=== PATIENT | male | born 1975 | race Caucasian/White ===

== ENCOUNTER 2018-03-01 11:12 | Emergency (ER) | payer BC ==
--- NOTE | 2018-03-01 11:56 | Emergency Department Record ---
History of Present Illness - General Chief Complaint: Fever Stated Complaint: FEVER Time Seen by Provider: 03/01/18 11:50 Source: Patient ( at bedside) Mode of Arrival: Ambulatory Limitations: No limitations - History of Present Illness Initial Comments: Pt with temps as high as 102 at home improved with tyl/aleve. Has mild diffuse BELLAMY with fevers. No neck pain, nausea, no ear or throat pains. No cough or SERGEY. No AP or urinary complaints. MD Complaint: Fever, Malaise Onset/Timin -: Days(s) Maximum Temperature: 102 F Temperature Source: Oral Associated Symptoms: Headache Treatments Prior to Arrival: Acetaminophen, Ibuprofen Treatment Prior to Arrival Comment:: naproxen - Related Data Previous Rx's Medication Instructions Recorded Azithromycin [Zithromax] 250 mg PO DAILY 5 Days #6 tab 03/01/18 Allergies Allergy/AdvReac Type Severity Reaction Status Date / Time codeine Allergy NAUSEA Verified 03/01/18 11:32 hydrocodone Allergy NAUSEA Verified 03/01/18 11:32 Travel Screening - Travel/Exposure Within Last 30 Days Have you traveled within the last 30 days?: No Review of Systems Constitutional: Reports: Fever, Malaise. Denies: Chills, Night sweats, Weakness Eyes: Denies: Eye discharge, Vision change ENT: Denies: Congestion Respiratory: Denies: Cough, Dyspnea Cardiovascular: Denies: Arrhythmia, Chest pain Endocrine: Reports: Fatigue. Denies: Polydipsia, Polyuria Gastrointestinal: Reports: Nausea. Denies: Abdominal pain, Diarrhea, Vomiting Genitourinary: Denies: Discharge, Dysuria Musculoskeletal: Denies: Arthralgia Skin: Denies: Bruising, Rash Neurological: Denies: Abnormal gait Psychiatric: Denies: Anxiety Past Medical History - SOCIAL HISTORY Smoking Status: Former smoker Alcohol Use: Rare Drug Use: None - RESPIRATORY Hx Respiratory Disorders: No - CARDIOVASCULAR Hx Cardio Disorders: No - NEURO Hx Neuro Disorders: No - GI Hx GI Disorders: No - Hx Genitourinary Disorders: No - ENDOCRINE Hx Endocrine Disorders: No - MUSCULOSKELETAL Hx Musculoskeletal Disorders: No - PSYCH Hx Psych Problems: No - HEMATOLOGY/ONCOLOGY Hx Hematology/Oncology Disorders: No Family Medical History Any Significant Family History?: Yes Hx Cancer: Father Physical Exam - General General Appearance: Alert, Oriented x3, Cooperative, No acute distress Limitations: No limitations - Head Head exam: Atraumatic - Eye Eye exam: Normal appearance, PERRL. negative: Conjunctival injection - ENT ENT exam: Normal exam, Mucous membranes moist, Normal external ear exam, Normal orophraynx, TM's normal bilaterally - Neck Neck exam: Normal inspection, Full ROM. negative: Lymphadenopathy, Meningismus , Tenderness - Respiratory Respiratory exam: Normal lung sounds bilaterally. negative: Rhonchi, Wheezes - Cardiovascular Cardiovascular Exam: Regular rate, Normal rhythm - GI/Abdominal GI/Abdominal exam: Soft, Normal bowel sounds. negative: Guarding, Rebound, Tenderness - Rectal Rectal exam: Deferred - exam: Deferred - Extremities Extremities exam: Normal inspection. negative: Tenderness - Back Back exam: Reports: Normal inspection. Denies: Paraspinal tenderness - Neurological Neurological exam: Alert, Normal gait, Oriented X3 - Psychiatric Psychiatric exam: Normal affect, Normal mood - Skin Skin exam: Normal color. negative: Rash, Urticaria Course Vital Signs 03/01/18 11:23 Temperature 100.3 F H Pulse Rate 109 H Respiratory 16 Rate Blood Pressure 122/64 Pulse Ox 98 - Reevaluation(s) Reevaluation #1: 03/01/18 13:03 slightly better. Labs reviewed. Glucose 153. A1C ordered. Discussed most likely viral etiology. Pt and agree with plan. All questions answered. Medical Decision Making - Management Options MDM Management: No Additional Work-up Planned - Data Complexity MDM Data: Labs Ordered and/or Reviewed, X-Ray Ordered and/or Reviewed, Independent Visualization of Image, Tracing, or Specimen - Lab Data Result diagrams: 03/01/18 12:20 03/01/18 12:20 - Radiology Data Radiology results: Image reviewed -: Radiology Exam Interpreted by Myself Disposition Disposition: Discharge Clinical Impression: Viral syndrome, Fever, Headache, Elevated blood sugar level Pneumonia Qualifiers: Pneumonia type: due to unspecified organism Laterality: right Lung location: lower lobe of lung Qualified Code(s): J18.1 - Lobar pneumonia, unspecified organism Disposition: Home, Self-Care Condition: (1) Good Instructions: Fever in Adults (ED), Hyperglycemia, Non-Diabetic (ED), Pneumonia (ED), General Headache (ED) Additional Instructions: Rest at home using Tylenol or Aleve as needed for fever and Headache. Return tothe ER if any concerns or symptoms become worse. Follow with your family doctor in 2-3 days Prescriptions: Azithromycin [Zithromax] 250 mg PO DAILY 5 Days #6 tab Forms: Patient Portal Access Quality - Quality Measures Quality Measures: N/A - Headache: Neuroimaging Neurological Exam: Patient had a normal neurological exam. [G9535] Headache: Use of Neuroimaging: < CTA, CT, MRA or MRI was NOT ordered > [G9534] - Blood Pressure Screening Does Patient Have Any of the Following: No Blood Pressure Classification: Hypertensive Reading Systolic Measurement: 129 Diastolic Measurement: 110 Screening for High Blood Pressure: < Pre-Hypertensive BP, F/U Documented > [ G8950] Pre-Hypertensive Follow-up Interventions: Follow-up with rescreen every year.
[2018-03-01 12:29] LABS: BASO % 0.5 % (0-6); EOS % 0.5 % (0-6); GRAN % 79.9 % (47-80); HEMATOCRIT 50.1 % (42.0-52.0); HEMOGLOBIN 18.3 gm/dl (14.0-18.0); LYMPH % 9.1 % (16-45); MEAN CELL VOLUME 80.8 fl (81-97); MEAN CORPUSCULAR HEMOGLOBIN 29.5 pg (27-33); MEAN CORPUSCULAR HGB CONC 36.5 g/dl (32-36); MEAN PLATELET VOLUME 9.5 fl (7.4-10.4); PLATELET COUNT 278 K/uL (130-400); RED CELL DISTRIBUTION WIDTH 13.6 % (11.5-14.5); WHITE BLOOD COUNT W/O DIFF 10.7 K/uL (4.2-12.2)
[2018-03-01 12:30] LABS: URINE APPEARANCE CLEAR; URINE BILIRUBIN NEGATIVE (NEGATIVE); URINE BLOOD MODERATE (NEGATIVE); URINE COLOR YELLOW; URINE GLUCOSE (UA) NEGATIVE (NEGATIVE); URINE KETONE NEGATIVE (NEGATIVE); URINE LEUKOCYTE ESTERASE NEGATIVE (NEGATIVE); URINE NITRITE NEGATIVE (NEGATIVE); URINE PROTEIN NEGATIVE (NEGATIVE); URINE UROBILINOGEN 0.2 E.U./dL (0.20 - 1.00)
[2018-03-01] MEDS: 0.9 % SODIUM CHLORIDE 1,000 ML BAG IV ONE (12:30)
[2018-03-01] MEDS: KETOROLAC 30 MG/ML VIAL IVP ONE (12:30)
[2018-03-01 12:39] LABS: BLOOD UREA NITROGEN 11 mg/dL (6-20); CREATININE 0.9 mg/dL (0.7-1.2); EST GLOMERULAR FILTRATION RATE > 60 mL/min; URINE WBC 0 - 2 (0-2/hpf)
[2018-03-01 12:40] LABS: URINE EPITHELIAL CELLS 0 - 2 (FEW)
[2018-03-01 12:42] LABS: GLUCOSE,RANDOM 153 mg/dL (74-109)
[2018-03-01] MEDS: ACETAMINOPHEN 500 MG TABLET PO ONE (13:13)
--- NOTE | 2018-03-02 10:13 | RADIOLOGY REPORT ---
EXAM: CHEST, TWO VIEWS HISTORY: DIFFICULTY BREATHING. TECHNIQUE: Frontal and lateral views of the chest were performed. FINDINGS: The heart size is normal. No pulmonary vascular congestion. There is a subtle infiltrate in the right lower lobe. The osseous structures are normal. IMPRESSION: SUBTLE INFILTRATE RIGHT LOWER LOBE. JOB NUMBER: [id number] MTDD
== END 2018-03-01 14:11 | disposition home or self-care (01) ==
LOC: ER 11:12
DX: J18.1 Lobar pneumonia, unspecified organism (principal); R51 Headache; B34.9 Viral infection, unspecified; R73.9 Hyperglycemia, unspecified; Z87.891 Personal history of nicotine dependence
CPT/HCPCS: 71046; 80048; 81001; 83036; 85025; 96374; 99284; J1885; J7030